=== PATIENT | male | born 1945 | race Caucasian/White ===

== ENCOUNTER 2021-02-10 10:34 | Emergency (ER) | payer OTHER, SELFPAY ==
[2021-02-10 10:42] VITALS: BP 122/74; PULSE 87; RESP 18; TEMP 37; O2SAT 96; BMI 23.7
--- NOTE | 2021-02-10 10:59 | ED_ITS ---
HPI - General Adult General Chief complaint: General Medical <Pina Lyles NP - Last Filed: 02/10/21 12:31> Stated complaint: covid symptoms <Pina Lyles NP - Last Filed: 02/10/21 12:31> Time Seen by Provider: 02/10/21 10:59 <Pina Lyles NP - Last Filed: 02/10/21 12:31> Source: patient <Pina Lyles NP - Last Filed: 02/10/21 12:31> Mode of arrival: ambulatory <EMELIA Deleon Last Filed: 02/10/21 12:31> Limitations: no limitations <EMELIA Deleon Last Filed: 02/10/21 12:31> History of Present Illness HPI narrative: 75 yo male here with chills, malaise and body aches x 2 days. Covid exposure at work last week ?Wednesday. Tested negative last wednesday. Symptoms began Wednesday. Here for re-test. <Pina Lyles NP - Last Filed: 02/10/21 12:31> Related Data Allergies/adverse reactions: Allergies Allergy/AdvReac Type Severity Reaction Status Date / Time No Known Allergies Allergy Mild NOT Verified 02/10/21 10:47 APPLICABLE <Pina Lyles NP - Last Filed: 02/10/21 12:31> Review of Systems Review of Systems: Yes all other systems are reviewed and are negative <EMELIA Deleon Last Filed: 02/10/21 12:31> Constitutional: Constitutional: Reports no additional constitutional complaints, Reports body ache(s), Reports chills, Denies fever(s), Denies headache(s), Reports malaise and Denies weakness <EMELIA Deleon Last Filed: 02/10/21 12:31> Eyes: Eyes: Reports no additional eye complaints and Denies change in vision <EMELIA Deleon Last Filed: 02/10/21 12:31> ENT: Reports system reviewed and no additional complaints, except as documented, Denies dizziness, Denies headache(s), Denies nasal congestion, Denies nasal discharge and Denies neck pain <Pina Lyles NP - Last Filed: 02/10/21 12:31> Cardiovascular: Cardiovascular: Reports no additional cardiovascular complaints, Denies chest pain, Denies leg edema and Denies dyspnea <Pina Lyles NP - Last Filed: 02/10/21 12:31> Respiratory: Respiratory: Reports no additional respiratory complaints, Denies cough and Denies dyspnea <Pina Lyles NP - Last Filed: 02/10/21 12:31> Gastrointestinal: Gastrointestinal: Reports no additional gastrointestinal complaints, Denies abdominal pain, Denies diarrhea, Denies nausea and Denies vomiting <Pina Lyles NP - Last Filed: 02/10/21 12:31> Genitourinary: Genitourinary: Denies urinary incontinence <Pina Lyles NP - Last Filed: 02/10/21 12:31> Musculoskeletal: Musculoskeletal: Reports no additional musculoskeletal complaints, Denies back pain, Denies arthralgias, Denies joint swelling, Denies neck pain, Denies numbness and Denies tingling <Pina Lyles NP - Last Filed: 02/10/21 12:31> Integumentary/Breasts: Skin/Breast: Reports system reviewed and no additional complaints, except as docu and Denies rash <Pina Lyles NP - Last Filed: 02/10/21 12:31> Neurologic: Reports system reviewed and no additional complaints, except as documented, Denies Abnormal speech present, Denies dizziness, Denies headache(s), Denies numbness, Denies tingling and Denies weakness <Pina Lyles NP - Last Filed: 02/10/21 12:31> PMF Past Medical History Attestation statement: The following information was validated with the patient. <Pina Lyles NP - Last Filed: 02/10/21 12:31> Source: old records reviewed and nursing notes reviewed <Pina Lyles NP - Last Filed: 02/10/21 12:31> Social History Social History: Social History Advance Directives: No Advance Directives Information Provided: No <Pina Lyles NP - Last Filed: 02/10/21 12:31> Physical Exam Vital Signs: Vital Signs: Last Vital Signs Temp 98.6 F 02/10/21 10:42 Pulse 87 02/10/21 10:42 Resp 18 02/10/21 10:42 BP 122/74 02/10/21 10:42 Pulse Ox 96 02/10/21 10:42 Body Mass Index 23.7 <Pina Lyles NP - Last Filed: 02/10/21 12:31> Vital Signs: Last Vital Signs Temp 98.6 F 02/10/21 10:42 Pulse 87 02/10/21 10:42 Resp 18 02/10/21 10:42 BP 122/74 02/10/21 10:42 Pulse Ox 96 02/10/21 10:42 Body Mass Index 23.7 <Ashish Bryant MD - Last Filed: 02/24/21 14:33> Const: General: cooperative, healthy appearing, comfortable and no acute distress <Pina Lyles NP - Last Filed: 02/10/21 12:31> Orientation/consciousness: patient oriented x3 <Pina Lyles NP - Last Filed: 02/10/21 12:31> Limitations: no limitations <Pina Lyles NP - Last Filed: 02/10/21 12:31> HENMT: Head: Yes normal to inspection <Pina Lyles NP - Last Filed: 02/10/21 12:31> Ears: hearing grossly normal bilaterally <Pina Lyles NP - Last Filed: 02/10/21 12:31> Eyes: General: appearance normal, both eyes and all related structures <Pina Lyles NP - Last Filed: 02/10/21 12:31> Neck: Neck: Yes normal visual inspection <Pina Lyles NP - Last Filed: 02/10/21 12:31> Chest: Chest palpation & inspection: normal inspection of the chest <Pina Lyles NP - Last Filed: 02/10/21 12:31> Resp: Effort & Inspection: normal respiratory effort <Pina Lyles NP - Last Filed: 02/10/21 12:31> Auscultation: clear to auscultation bilaterally <Pina Lyles NP - Last Filed: 02/10/21 12:31> Cardio: Rate: regular rate <EMELIA Deleon Last Filed: 02/10/21 12:31> Rhythm: regular rhythm <Pina Lyles NP - Last Filed: 02/10/21 12:31> Peripheral pulses: Peripheral pulses 2+ throughout <Pina Lyles NP - Last Filed: 02/10/21 12:31> Skin: General skin exam: no rashes or lesions noted <Pina Lyles NP - Last Filed: 02/10/21 12:31> Neuro: General: patient oriented x3 and moves all extremities <Pina Lyles NP - Last Filed: 02/10/21 12:31> Cognition (Neuro): normal cognition <Pina Lyles NP - Last Filed: 02/10/21 12:31> Speech: No Abnormal speech present <Pina Lyles NP - Last Filed: 02/10/21 12:31> Gait exam (Neuro): Normal gait present <Pina Lyles NP - Last Filed: 02/10/21 12:31> Extrem: General: Yes normal to inspection <EMELIA Deleon Last Filed: 02/10/21 12:31> Course Course Course Narrative: 75 yo male previously healthy here with complaints of subjective fevers, chills, body aches times 48 hours with COVID exposure last week at work. Well-appearing, speaking full sentences in no apparent distress. Hemodynam ically stable. Plan for COVID test here. 1205-COVID screen positive. Patient well-appearing. Clear lung sounds with stable saturations. Reviewed worrisome signs and symptoms such as shortness of breath, chest pain, fever which does not respond to home antipyretic and when to return to the emergency department. Comfortable discharge home. <Pina Lyles NP - Last Filed: 02/10/21 12:31> I have reviewed the chart <Ashish Bryant MD - Last Filed: 02/24/21 14:33> Medical Decision Making Medical Records Medical records reviewed: Yes I reviewed the patient's medical records. <Pina Lyles NP - Last Filed: 02/10/21 12:31> Lab Data Lab results reviewed: Yes I reviewed the patient's lab results. <Pina Lyles NP - Last Filed: 02/10/21 12:31> Labs: Lab Results 02/10/21 Range/Units 11:13 COVID-19 ([facility]) Positive A (Negative) COVID-19 Clin Com See Note <Pina Lyles NP - Last Filed: 02/10/21 12:31> Lab Results 02/10/21 Range/Units 11:13 COVID-19 ([facility]) Positive A (Negative) COVID-19 Clin Com See Note <Ashish Bryant MD - Last Filed: 02/24/21 14:33> Discharge Plan Discharge Clinical Impression: COVID-19 <Pina Lyles NP - Last Filed: 02/10/21 12:31> Patient Disposition: Home, Self-Care <Pina Lyles NP - Last Filed: 02/10/21 12:31> Instructions: COVID-19 (Coronavirus Disease 2019) (ED) <Pina Lyles NP - Last Filed: 02/10/21 12:31> Additional Instructions: Per the CDC you must quarantine for 10 days from when your symptoms 1st began Take Motrin or Tylenol as needed for pain or fever if able Increase fluids, rest Return for shortness of breath, chest pain, fever which does not respond to Motrin or Tylenol <Pina Lyles NP - Last Filed: 02/10/21 12:31> Referrals: Trino Glover MD [Primary Care Provider] - 2 days <Pina Lyles NP - Last Filed: 02/10/21 12:31> Interventions: ED Discharge Assessment Last Done: 02/10/21 12:25 <Pina Lyles NP - Last Filed: 02/10/21 12:31> Discharge Date/Time: 02/10/21 12:10 <Pina Lyles [employer] - Last Filed: 02/10/21 12:31>
[2021-02-10 11:28] LABS: COVID-19 Test Positive (Negative); IDNOW Serial# 9DD0AD1C
== END 2021-02-10 12:10 | disposition home or self-care (01) ==
PROVIDERS: Nurse Practitioner Family; Emergency Provider Emergency Medicine; PCP Internal Medicine
DX: U07.1 COVID-19 (principal); M79.10 Myalgia, unspecified site
CPT/HCPCS: 36415; 87635; 99283

== ENCOUNTER 2023-06-16 08:41 | Outpatient (REF) | payer OTHER, SELFPAY ==
[2023-06-16 09:02] LABS: MANUAL DIFF FLAG NO
[2023-06-16 10:52] LABS: Alanine Aminotransferase 21 U/L (0-40); Albumin Level 4.4 g/dL (3.5-5.0); Alkaline Phosphatase 75 U/L (39-117); Anion Gap 14 (12-20); Aspartate Amino Transferase 23 U/L (5-37); Blood Urea Nitrogen 11 mg/dL (9-16); Calcium 10.1 mg/dL (8.4-10.2); Carbon Dioxide 26 mmol/L (22-29); Chloride 106 mmol/L (96-108); Cholesterol 195 mg/dL; Estimated Glomerular Filt Rate > 60; Glucose Fasting 92 mg/dL (60-99); HDL Cholesterol 34 mg/dL; LDL Cholesterol Calculated 128 mg/dl; Potassium 4.4 mmol/L (3.3-5.1); Sodium 142 mmol/L (135-145); Total Protein 7.6 g/dL (6.5-8.0); Triglycerides 165 mg/dL
[2023-06-16 10:55] LABS: Basophils Percent Auto 0.6 % (0-2); Eosinophils Absolute Auto 0.1 X10*3/uL (0.0-0.4); Eosinophils Percent Auto 1.1 % (0-4); Hematocrit 49.5 % (42.0-52.0); Hemoglobin 17.1 g/dl (14.0-18.0); Imm Gran Abs Auto 0.01 X10*3/uL (0.00-0.03); Imm Gran Pct Auto 0.1 % (0.0-0.4); Lymphocytes Absolute Auto 1.7 X10*3/uL (1.2-4.9); Lymphocytes Percent Auto 23.9 % (20-40); Mean Corpuscular HGB Conc 34.5 g/dl (31.0-36.0); Mean Corpuscular Hemoglobin 32.6 pg (27.0-33.0); Mean Corpuscular Volume 94.3 fL (80.0-98.0); Mean Platelet Volume 10.7 fL (9.4-12.4); Monocytes Absolute Auto 0.6 X10*3/uL (0.1-1.2); Monocytes Percent Auto 8.9 % (2-11); Neutrophils Absolute Auto 4.6 x10*3/uL (2.0-8.3); Neutrophils Percent Auto 65.4 % (45-73); Platelet Count 244 X10*3/uL (160-400); Red Blood Count 5.25 X10*6/uL (4.60-5.80); Red Cell Distribution Width 12.8 % (11.0-16.0)
[2023-06-16 10:59] LABS: Prostate Specific Antigen 1.57 ng/mL (<0.05-4.0)
[2023-06-16 11:12] LABS: Vitamin D 25-OH Total 42.2 ng/mL (>30)
== END 2023-06-16 08:42 | disposition home or self-care (01) ==
LOC: HO.LAB 08:41
PROVIDERS: PCP Internal Medicine Medical Oncology; Visit Provider Internal Medicine Medical Oncology
DX: Z12.5 Encounter for screening for malignant neoplasm of prostate (principal); N40.0 Benign prostatic hyperplasia without lower urinary tract symptoms; J44.9 Chronic obstructive pulmonary disease, unspecified; M85.80 Other specified disorders of bone density and structure, unspecified site; E78.2 Mixed hyperlipidemia; E03.9 Hypothyroidism, unspecified
CPT/HCPCS: 36415; 80053; 80061; 82306; 84153; 84443; 85025

== ENCOUNTER 2023-08-27 11:01 | Outpatient (AMB) | payer OTHER, SELFPAY ==
--- NOTE | 2023-08-27 07:24 | A.OFFVIS_ITS ---
Intake Intake Visit Reasons: LDCT SD Allergies No Known Allergies Allergy (Mild, Verified 02/10/21 10:47) NOT APPLICABLE HPI LDCT SD HPI Details Initial telehealth phone visit for this 78yo smoker with a 60PYH. Patient has been smoking since age 14 for 64 years at 1ppd. . Denies marijuana use. Denies second hand smoke exposure. Denies exposure to chemicals or substances like asbestos. . Denies known family history of lung cancer. Reports personal history of skin cancer - basal cell excised below right eye. . Denies chest CT in last year. Per PCP notes he has history of pleural plaques but no history of asbestos exposure. History of right pneumothorax at age 16. . Denies recent travel outside the [place]. Denies recent respiratory illness or recent hospitalization for respiratory issues. Reports testing positive for COVID in 2020 and 2021. Denies receiving COVID Vaccine. . Denies fever, chills, new/worsening cough, hemoptysis, hoarseness or dysphagia. Denies significant chest pain, significant dyspnea or unintentional weight loss. Patient Lung Cancer Screening Questionnaire reviewed with patient by provider. . Shared Decision Making Completed. Patient meets criteria. Discussed in detail with patient, the risk vs benefit of LDCT screening. Patient consents to proceed with scan. Discussed smoking cessation. 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 History of COVID-19 Nicotine dependence, cigarettes, uncomplicated Pleural plaque History of pneumothorax History of periodontal disease BPH (benign prostatic hyperplasia) Surgical History (Updated 08/27/23 @ 10:17 by Radha Dos Santos PA-C) History of basal cell carcinoma excision History of amputation of finger History of colonoscopy History of hemorrhoidectomy History of tooth extraction Family History (Updated 08/05/23 @ 10:33 by Radha Dos Santos PA-C) Father CHF (congestive heart failure) Mother Dementia Stroke Assessment & Plan Assessment & Plan (1) Nicotine dependence, cigarettes, uncomplicated: Comment: (current smoker, onset 14yo, 1ppd x 64yrs, 60pyh) Code(s): F17.210 - Nicotine dependence, cigarettes, uncomplicated Plan: - Telehealth SDM visit completed today in office. - Patient meets criteria for LDCT for lung cancer screening purposes and is asymptomatic. - Smoking cessation counseling offered. Patients can always call [phone]. - Will arrange for a LDCT scan of the chest for screening purposes at [facility]. - Risks, benefits, and alternatives were discussed in detail and the patient agrees to proceed. - Risks discussed include but are not limited to: radiation exposure, anxiety during testing and while awaiting results, false negatives, false positives and possibility of additional intervention such as further imaging or surgical procedures for benign disease. - Benefits are obviously detection of lung cancer at an early stage which can lead to improved outcomes. - Discussed the importance of screening program compliance with adherence to yearly LDCT scan as scheduled - or sooner interval scans for personalized screening regimen. - Discussed follow up plan. Our office will send a letter discussing results and if needed set up phone call and office visit based on CT findings. - Patient educated on results categorization and the management decisions for suspicious findings potentially found on the screening LDCT scan. Any patient with a Lung RADS score of 3 or 4 will be reviewed by a multidisciplinary team at [facility] to form a plan of action in regards to scan findings. - If further work up is warranted for a suspicious lung finding this will be followed by the Lung Cancer Screening program in conjunction with the Thoracic Surgery Department at [facility]. - A copy of the office note and LDCT will be sent to the patient's PCP - as well as documentation on any associated further plans of care. - Incidental findings on LDCT are the PCP's responsibility. These findings are indicated with an S finding on the LDCT Assessment. A note discussing the findings will be sent to the PCP who is then responsible for further management. - All questions answered.? Telehealth Telehealth Location of provider rendering services: practice address Location of patient: address on file Patient Identification confirmed using: Name, : Yes Telehealth method: voice only Patient verbally consented to treatment: Yes Patient verbally consented to billing insurance company: Yes Patient informed of any privacy concerns related to visit: Yes Minutes spent on Phone/Video with Pt.: 15 Coding Level of Care Code Lung Cancer Screening G0296 Diagnoses Nicotine dependence, cigarettes, uncomplicated F17.210
== END 2023-08-27 11:03 | disposition home or self-care (01) ==
LOC: HO.HMS 11:01
PROVIDERS: PCP Internal Medicine Medical Oncology; Visit Provider Physician Assistant Medical
DX: F17.210 Nicotine dependence, cigarettes, uncomplicated (principal)
CPT/HCPCS: G0296

== ENCOUNTER 2023-08-27 12:45 | Outpatient (REF) | payer OTHER, SELFPAY ==
--- NOTE | ~2023-08-27 | CT_ITS ---
EXAMINATION: CT CHEST LOW-DOSE SCREENING WITHOUT CONTRAST HISTORY: Asymptomatic patient meeting criteria for lung screening. PATIENT PACK-YEAR HISTORY: 65 Current Smoker: Yes If former smoker, years since quitting: COMPARISON: 03/28/2009 TECHNIQUE: Multidetector volumetric non-contrast CT imaging of the chest was performed using low dose screening CT technique. Axial thin section 0.625 mm reformations in soft tissue and lung windows were obtained. Sagittal and coronal reformations were obtained. Axial MIP images were also created and reviewed. RECONSTRUCTED WIDTH: 1.25 mm x 1.25 mm TOTAL EXAM DLP: 62 mGy-cm CTDIvol: 1.30 L mGy FINDINGS: LUNGS: Mild centrilobular emphysema. No suspicious pulmonary nodule. No focal consolidation. Central airways are patent. PLEURA: No pleural effusion. LYMPH NODES: Calcified left hilar lymph node measures 1.4 x 2.1 cm. MEDIASTINUM: Ascending thoracic aorta measures 4.2 x 4.3 cm. Heart size is normal. No pericardial effusion. CORONARY ARTERY CALCIFICATIONS: Moderate. CHEST WALL/BREASTS: No acute abnormality. UPPER ABDOMEN: This study was performed without contrast and with lower than standard dose, reducing the sensitivity for detection of small lesions in the upper abdomen. Chronic granulomatous disease of the spleen. OSSEOUS STRUCTURES: No destructive bone lesions. CT/CT lung screening IMPRESSION: No suspicious pulmonary nodule. LUNG-RADS CATEGORY ASSESSMENT: 1. Negative. No nodules or definitely benign nodules. Continue annual screening with low-dose CT in 12 months. Probability of malignancy less than 1%. INCIDENTAL FINDINGS (S CATEGORY): Finding: Thoracic aortic aneurysm. Significance category: Clinically significant. RECOMMENDATION: Low dose lung CT. overall in 1 year. Visual estimate of coronary calcified plaque burden: Moderate. However, this exam cannot replace a dedicated cardiac CT calcium score for accurate assessment. LUNG-RADS CATEGORY: 1 -- NEGATIVE
== END 2023-08-27 12:46 | disposition home or self-care (01) ==
LOC: HO.CT 12:45
PROVIDERS: PCP Internal Medicine Medical Oncology; Visit Provider Physician Assistant Medical
DX: Z12.2 Encounter for screening for malignant neoplasm of respiratory organs (principal); F17.210 Nicotine dependence, cigarettes, uncomplicated
CPT/HCPCS: 71271; G0296

== ENCOUNTER 2023-09-03 15:46 | Outpatient (REF) | payer OTHER, SELFPAY ==
--- NOTE | ~2023-09-03 | XR_ITS ---
EXAM: XR LUMBAR SPINE XR SACROILIAC JOINTS CLINICAL HISTORY: Lumbar radiculopathy. COMPARISON: None available. TECHNIQUE: Views of the lumbar spine. 3 views of the bilateral sacroiliac joints. FINDINGS: SACROILIAC JOINTS: The bones are diffusely demineralized. Moderate degenerative changes in the bilateral sacroiliac joints with hypertrophic change right greater than left. Tubular/linear density projecting along the posterior/inferior portion of the sacrum/coccyx on the lateral view may be related to structures possibly external to the patient. Correlation with exam recommended. LUMBAR SPINE: Degenerative changes in the imaged lower thoracic spine. Facet arthritis in the lower lumbar spine. Multilevel degenerative changes in the lumbar spine with concavities at L1 with associated hypertrophic change at L1-L2. XR/XR sacrum coccyx min 2V IMPRESSION: 1. Moderate degenerative changes in the bilateral sacroiliac joints, right greater than left. 2. Multilevel degenerative changes in the lumbar spine. 3. Superior and inferior endplate concavities at L1 with increased hypertrophic change at L1-L2.
--- NOTE | ~2023-09-03 | XR_ITS ---
EXAM: XR LUMBAR SPINE XR SACROILIAC JOINTS CLINICAL HISTORY: Lumbar radiculopathy. COMPARISON: None available. TECHNIQUE: Views of the lumbar spine. 3 views of the bilateral sacroiliac joints. FINDINGS: SACROILIAC JOINTS: The bones are diffusely demineralized. Moderate degenerative changes in the bilateral sacroiliac joints with hypertrophic change right greater than left. Tubular/linear density projecting along the posterior/inferior portion of the sacrum/coccyx on the lateral view may be related to structures possibly external to the patient. Correlation with exam recommended. LUMBAR SPINE: Degenerative changes in the imaged lower thoracic spine. Facet arthritis in the lower lumbar spine. Multilevel degenerative changes in the lumbar spine with concavities at L1 with associated hypertrophic change at L1-L2. XR/XR lumbar spine 2-3V IMPRESSION: 1. Moderate degenerative changes in the bilateral sacroiliac joints, right greater than left. 2. Multilevel degenerative changes in the lumbar spine. 3. Superior and inferior endplate concavities at L1 with increased hypertrophic change at L1-L2.
== END 2023-09-03 15:47 | disposition home or self-care (01) ==
LOC: HO.XRAY 15:46
PROVIDERS: PCP Internal Medicine Medical Oncology; Visit Provider Internal Medicine Medical Oncology
DX: M54.16 Radiculopathy, lumbar region (principal); M53.3 Sacrococcygeal disorders, not elsewhere classified
CPT/HCPCS: 72100; 72220

== ENCOUNTER 2023-12-21 08:55 | Outpatient (REF) | payer OTHER, SELFPAY ==
[2023-12-21 09:08] LABS: MANUAL DIFF FLAG NO
[2023-12-21 09:34] LABS: Basophils Percent Auto 0.4 % (0-2); Eosinophils Absolute Auto 0.1 X10*3/uL (0.0-0.4); Eosinophils Percent Auto 1.2 % (0-4); Hemoglobin 16.6 g/dl (14.0-18.0); Imm Gran Abs Auto 0.02 X10*3/uL (0.00-0.03); Imm Gran Pct Auto 0.3 % (0.0-0.4); Lymphocytes Absolute Auto 1.6 X10*3/uL (1.2-4.9); Lymphocytes Percent Auto 23.7 % (20-40); Mean Corpuscular HGB Conc 34.6 g/dl (31.0-36.0); Mean Corpuscular Volume 92.5 fL (80.0-98.0); Mean Platelet Volume 9.6 fL (9.4-12.4); Monocytes Absolute Auto 0.7 X10*3/uL (0.1-1.2); Monocytes Percent Auto 9.6 % (2-11); Neutrophils Absolute Auto 4.4 x10*3/uL (2.0-8.3); Neutrophils Percent Auto 64.8 % (45-73); Platelet Count 235 X10*3/uL (160-400); Red Blood Count 5.19 X10*6/uL (4.60-5.80); Red Cell Distribution Width 12.4 % (11.0-16.0); White Blood Count 6.8 X10*3/uL (4.8-10.8)
[2023-12-21 10:12] LABS: Alanine Aminotransferase 19 U/L (0-40); Albumin Level 4.3 g/dL (3.5-5.0); Alkaline Phosphatase 85 U/L (39-117); Anion Gap 12 (12-20); Aspartate Amino Transferase 18 U/L (5-37); Blood Urea Nitrogen 12 mg/dL (9-16); Calcium 9.6 mg/dL (8.4-10.2); Carbon Dioxide 25 mmol/L (22-29); Chloride 109 mmol/L (96-108); Cholesterol 208 mg/dL (<200); Estimated Glomerular Filt Rate > 60; Glucose Fasting 89 mg/dL (60-99); HDL Cholesterol 34 mg/dL (>40); LDL Cholesterol Calculated 146 mg/dL (<100); Sodium 142 mmol/L (135-145); Total Protein 7.2 g/dL (6.5-8.0); Triglycerides 141 mg/dL (<150)
== END 2023-12-21 08:56 | disposition home or self-care (01) ==
LOC: HO.LAB 08:55
PROVIDERS: PCP Internal Medicine Medical Oncology; Visit Provider Internal Medicine Medical Oncology
DX: E78.2 Mixed hyperlipidemia (principal)
CPT/HCPCS: 36415; 80053; 80061; 85025

== ENCOUNTER 2024-06-09 09:24 | Outpatient (REF) | payer OTHER, SELFPAY ==
[2024-06-09 09:48] LABS: MANUAL DIFF FLAG NO
[2024-06-09 10:01] LABS: Basophils Percent Auto 0.4 % (0-2); Eosinophils Absolute Auto 0.1 X10*3/uL (0.0-0.4); Eosinophils Percent Auto 1.8 % (0-4); Hemoglobin 17.2 g/dl (14.0-18.0); Imm Gran Abs Auto 0.02 X10*3/uL (0.00-0.03); Imm Gran Pct Auto 0.3 % (0.0-0.4); Lymphocytes Absolute Auto 1.8 X10*3/uL (1.2-4.9); Lymphocytes Percent Auto 23.4 % (20-40); Mean Corpuscular HGB Conc 34.4 g/dl (31.0-36.0); Mean Corpuscular Volume 93.1 fL (80.0-98.0); Mean Platelet Volume 9.8 fL (9.4-12.4); Monocytes Absolute Auto 0.7 X10*3/uL (0.1-1.2); Monocytes Percent Auto 9.2 % (2-11); Neutrophils Absolute Auto 5.1 x10*3/uL (2.0-8.3); Neutrophils Percent Auto 64.9 % (45-73); Platelet Count 229 X10*3/uL (160-400); Red Blood Count 5.37 X10*6/uL (4.60-5.80); Red Cell Distribution Width 13.1 % (11.0-16.0); White Blood Count 7.9 X10*3/uL (4.8-10.8)
[2024-06-09 10:45] LABS: Alanine Aminotransferase 18 U/L (0-40); Albumin Level 4.5 g/dL (3.5-5.0); Alkaline Phosphatase 87 U/L (39-117); Anion Gap 11 (12-20); Aspartate Amino Transferase 18 U/L (5-37); Blood Urea Nitrogen 14 mg/dL (9-16); Calcium 10.3 mg/dL (8.4-10.2); Carbon Dioxide 25 mmol/L (22-29); Chloride 110 mmol/L (96-108); Cholesterol 188 mg/dL (<200); Estimated Glomerular Filt Rate > 60; Glucose Fasting 104 mg/dL (60-99); HDL Cholesterol 35 mg/dL (>40); LDL Cholesterol Calculated 131 mg/dL (<100); Sodium 142 mmol/L (135-145); Total Protein 7.3 g/dL (6.5-8.0); Triglycerides 111 mg/dL (<150)
[2024-06-09 10:59] LABS: Prostate Specific Antigen 0.86 ng/mL (<0.05-4.0)
== END 2024-06-09 09:25 | disposition home or self-care (01) ==
LOC: HO.LAB 09:24
PROVIDERS: PCP Internal Medicine Medical Oncology; Visit Provider Internal Medicine Medical Oncology
DX: N40.0 Benign prostatic hyperplasia without lower urinary tract symptoms (principal); E78.2 Mixed hyperlipidemia; Z12.5 Encounter for screening for malignant neoplasm of prostate
CPT/HCPCS: 36415; 80053; 80061; 84153; 85025

== ENCOUNTER 2024-07-19 15:01 | Outpatient (REF) | payer OTHER, SELFPAY ==
--- NOTE | ~2024-07-19 | XR_ITS ---
EXAMINATION: XR FINGER, LEFT CLINICAL INFORMATION: smashed his finger in a machine on 07/17/24. Index finger fracture. COMPARISON: None available. TECHNIQUE: PA, lateral, and oblique views of the left index finger. FINDINGS: There is a subtle chip fracture at the tuft of the index finger. This is relatively small and may be acute. No additional fractures are identified. Mild osteoarthritis is present in the DIP joint of the index finger. No mild multifocal osteoarthritis partially imaged and the other interphalangeal joints and the first CMC and STT joints. No erosions. 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 XR/XR finger LT min 2V IMPRESSION: 1. Subtle chip fracture at the tuft of the index finger, age indeterminate. 2. Mild multifocal osteoarthritis. Electronically signed by: Clint Rashid MD 07/19/2024 04:47 PM EDT RP
== END 2024-07-19 15:02 | disposition home or self-care (01) ==
LOC: HO.XRAY 15:01
PROVIDERS: PCP Internal Medicine Medical Oncology; Visit Provider Internal Medicine Medical Oncology
DX: S62.601A Fracture of unspecified phalanx of left index finger, initial encounter for closed fracture (principal)
CPT/HCPCS: 73140

== ENCOUNTER 2024-07-27 13:20 | Outpatient (REF) | payer OTHER, SELFPAY ==
--- NOTE | ~2024-07-27 | XR_ITS ---
EXAMINATION: XR HAND, LEFT CLINICAL INFORMATION: M79.642 - Pain in left hand COMPARISON: None available. TECHNIQUE: PA, lateral, and oblique views of the left hand. FINDINGS: Normal bone mineralization. No suspicious bone lesion. Previously seen small chip fracture of the distal tuft, distal phalanx, second digit again noted, without definite change in appearance. No additional fractures or dislocations. There has been prior amputation of the third digit at the distal one third of the middle phalanx. There is normal bony cortication at the distal tip. No significant regions of arthropathy. Carpus intact and normally aligned. No discrete soft tissue abnormalities. No radiopaque foreign body. XR/XR hand LT min 3V IMPRESSION: 1. Redemonstration of small chip fracture arising from the distal tuft of the first digit distal phalanx. No change in the overall appearance. 2. Otherwise, no acute findings of the left hand Electronically signed by: Clint Elder MD 10/07/2024 08:54 PM TOÑITO
== END 2024-07-27 13:21 | disposition home or self-care (01) ==
LOC: HO.HOSX 13:20
PROVIDERS: PCP Internal Medicine Medical Oncology
DX: S62.631A Displaced fracture of distal phalanx of left index finger, initial encounter for closed fracture (principal); M79.642 Pain in left hand; X58.XXXA Exposure to other specified factors, initial encounter; Y93.9 Activity, unspecified; Y92.9 Unspecified place or not applicable; Y99.9 Unspecified external cause status
CPT/HCPCS: 73130

== ENCOUNTER → 2024-07-27 13:27 | Outpatient (BNV) | payer OTHER, SELFPAY | PROVIDERS: PCP Internal Medicine Medical Oncology; Visit Provider Radiology Diagnostic Radiology | DX: S62.631A Displaced fracture of distal phalanx of left index finger, initial encounter for closed fracture (principal) | CPT/HCPCS: 73130 ==

== ENCOUNTER 2024-07-27 14:15 | Outpatient (AMB) | payer OTHER, SELFPAY ==
--- NOTE | 2024-07-27 14:18 | A.OFFVIS_ITS ---
Intake Visit Reasons: FC-Fx of Left index finger DOI 07/16/24 Intake Note: Donald is a 79 year old right hand dominant male who presents to the office today for a fx of left index finger. Pt states his DOI was 07/16/24 when he was working and his finger got stuck in a machine at work. Pt states he doesn't have any pain now but states he still has some swelling. Pt denies any numbness or tingling. Allergies No Known Allergies Allergy (Mild, Verified 07/27/24 14:18) NOT APPLICABLE HPI HPI FC-Fx of Left index finger DOI 07/16/24: Details: Patient is a 71-year-old male who presents for evaluation of fracture of the distal phalanx of the left index finger, date of injury 07/16/2024. The patient reports that he was at work, when his finger got caught between 2 motions, and was crushed between these 2 machines. The patient reports that there was no active bleeding from the injury site, but states that he did develop a significant hematoma under the fingernail of the left index finger. The patient reports that his pain in the left index finger has completely resolved, and then he is not experiencing any swelling or redness in the area. Patient has been wearing a splint since date of evaluation on 07/20/2024. Denies any numbness or tingling in the left upper extremity. No other acute complaints or concerns at this time. [facility] Medical History (Updated 07/28/24 @ 09:03 by AMELIA Choudhary) History of basal cell carcinoma (BCC) of skin Dilation of thoracic aorta History of COVID-19 Nicotine dependence, cigarettes, uncomplicated Pleural plaque History of pneumothorax History of periodontal disease BPH (benign prostatic hyperplasia) Surgical History (Updated 08/27/23 @ 10:17 by Radha Dos Santos PA-C) History of basal cell carcinoma excision History of amputation of finger History of colonoscopy History of hemorrhoidectomy History of tooth extraction Family History (Updated 08/05/23 @ 10:33 by Radha Dos Santos PA-C) Father CHF (congestive heart failure) Mother Dementia Stroke Social History (Updated 08/27/23 @ 10:19 by Radha Dos Santos PA-C) Patient Tobacco Use Status: Current everyday Tobacco user Tobacco use type: Cigarette Cigarette Packs Per Day: 1 Years Smoked: (onset 14yo, 1ppd x 65yrs, 60pyh) Review of Systems Const All systems reviewed & are unremarkable except as noted in HPI and below Physical Exam Extrem Other: Patient is alert, oriented, and in no acute distress. Neuro: Normal sensation of the tips of all digits of the left hand at this time Vascular: Cap refill brisk Pain: Patient reports no tenderness to palpation about the distal portion of the left index finger ROM: Patient is able to make a closed fist and extend all digits of the left hand fully without difficulty Skin: No lacerations or abrasions. There is noted to be a significant subungual hematoma of the left index finger, with no evidence of active bleeding General: No erythema, or evidence of infection. Psych: Appears grossly normal Affect normal Attitude cooperative Office Procedures Fracture Care Details: Fracture of distal phalanx of the left index finger Fracture Billing Code: Fracture Billing Code Results Reviewed Results Reviewed: X-rays obtained in the office today and independently reviewed by me, Suhail Baca PA-C, demonstrate small avulsion fracture of the tip of the distal phalanx of the left index finger, of unknown age. No other fracture or acute bony abnormality noted. Assessment & Plan Assessment & Plan (1) Fracture of distal phalanx of left index finger: Code(s): S62.631A - Displaced fracture of distal phalanx of left index finger, initial encounter for closed fracture Category: Medical Plan 1. Avulsion fracture of distal phalanx of left index finger with subungual hematoma Date of injury 07/16/2024 Patient is educated about this injury Patient is educated about the typical recovery course At this time, the patient is educated that he will not require any antibiotics, as there is no evidence of bleeding outside of under the fingernail of the left index finger, therefore this does not need to be considered an open fracture Patient is also advised that he does not require the use of a splint at this time, and then he only needs to wear it for comfort Patient is also advised that his fingernail will likely come off at some point in the coming weeks, and if that occurs he should keep the area clean, dry, intact under a dressing Patient is also educated on the signs and symptoms of infection, and to call our office for another appointment if he experiences any of the symptoms Patient is amenable to this plan Patient will follow-up as needed with any acute concerns Orders: Orders XR hand LT min 3V 07/27/24 M79.642 - Pain in left hand Coding Level of Care Code New Pt Level 3 (35455) Diagnoses Fracture of distal phalanx of left index finger S62.631A CPT Codes Fracture Care - Fracture Billing Code: Fracture Billing Code ([id number])
== END 2024-07-27 14:53 | disposition home or self-care (01) ==
PROVIDERS: PCP Internal Medicine Medical Oncology
DX: S62.631A Displaced fracture of distal phalanx of left index finger, initial encounter for closed fracture (principal)
CPT/HCPCS: 99203

== ENCOUNTER 2025-06-18 07:21 | Outpatient (REF) | payer OTHER, SELFPAY ==
--- OUTSIDE RECORDS SUMMARY | 2025-06-18 07:24 | XMS_ITS ---
Author Name [facility] Organization Unknown Care Team Organization Name Specialty Phone Email Start Date End Da te [facility] Radha Layton Primary [facility] 05/13/20232023
--- OUTSIDE RECORDS SUMMARY | 2025-06-18 07:24 | XMS_ITS | Patient Health Record ---
Author Organization [facility] Address [address] [facility] [place] [address] Care Team Providers Care Internet Project Manager Name Role Phone Adalberto MACIEL, Trino Primary Care Provider Holly Yvan Carter Unavailable [phone] Reason For Referral No Information Medications Medication SIG (Take, Route, Frequency, Duration) Notes Start Date End Date Status Doxycycline Hyclate 20 MG 1 tablet Orall y Twice a day Active Problems Problem Type SNOMED Code ICD Code Onset Dates Problem Status W/U Status Risk Notes Problem Bursitis (76675227) Bursitis (727.3) Active confirmed Problem Myositis (26696905) Myositis (729.1) Active confirmed Problem Pain in limb (18205890) Pain in Limb (729.5) Active confirmed Problem Plantar fasciitis (454251885) Plantar Fasciitis (728.71) Active confirmed Problem Calcaneal spur (86523143) Calcaneal spur (726.73) Active confirmed Plan Of Treatment Pending Test Test Name Order Date X ray : Foot, right 2V 06/20/2015 Insurance Providers Payer Name Payer Address Payer Phone Subscriber Number Group Number Insured Name Patient Relationship to Insured Coverage Start Date Coverage End Date [facility] [address] [facility] [place] [address] [phone] [id number] Donald Venegas Self - patient is the insured Medical (General) History Medical History History ICD Code Measles
--- OUTSIDE RECORDS SUMMARY | 2025-06-18 07:24 | XMS_ITS | Patient Health Record ---
Author Organization Navi Greenberg III, MD Address [address] [place] [address] [place] [address] Care Team Providers Care High Energy Forming Equipment Operator Name Role Phone Navi Greenberg Primary Care Provider [phone] Allergies Allergen (clinical drug ingredient) Drug/Non Drug Allergy documented on EMR Reaction Allergy Type Onset Date Status No Known Drug Allergy Unknown Drug Allergy Active Results Component Value Reference Range Notes XR finger LT min 2V Reviewed date:07/21/2024 08:41:44 PM Interpretation: Performing Lab: Notes/Report: [address] [address] XRay Report Signed Patient: Nyla Venegas MR#: [id number] : 1945 Acct:[id number] Age/Sex: 79 / M ADM Date: 07/19/24 Loc: HO.XRAY Attending Dr: Navi Greenberg MD Ordering Physician: Navi Greenberg MD Date of Service: 07/19/24 Procedure(s): XR finger LT min 2V Accession Number(s): [id number] cc: Navi Greenberg MD EXAMINATION: XR FINGER, LEFT CLINICAL INFORMATION: smashed his finger in a machine on 07/17/24. Index finger fracture. COMPARISON: None available. TECHNIQUE: PA, lateral, and oblique views of the left index finger. FINDINGS: There is a subtle chip fracture at the tuft of the index finger. This is relatively small and may be acute. No additional fractures are identified. Mild osteoarthritis is present in the DIP joint of the index finger. No mild multifocal osteoarthritis partially imaged and the other interphalangeal joints and the first CMC and STT joints. No erosions. 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 XR/XR finger LT min 2V IMPRESSION: 1. Subtle chip fracture at the tuft of the index finger, age indeterminate. 2. Mild multifocal osteoarthritis. Electronically signed by: Clint Rashid MD 07/19/2024 04:47 PM EDT Workstation: [employer] Dictated By: Clint Rashid MD Signed By: <Electronically signed by Clint Rashid MD in OV> 07/19/24 1647 DD/ 1520 TD/TT: 07/19/24 1530 Exercise Equipment Specialist: [place] [id number] XRay Report Signed Patient: Moe Venegas MR#: [id number] : 1945 Acct:[id number] Age/Sex: 79 / M ADM Date: 07/19/24 Loc: HO.ESTHER Attending Dr: Navi Greenberg MD Ordering Physician: Navi Greenberg MD Date of Service: 07/19/24 Procedure(s): XR fin lynn LT min 2V Accession Number(s): [id number] cc: Navi Greenberg MD EXAMINATION: XR FINGER, LEFT CLINICAL INFORMATION: smashed his finger i n a machine on 07/17/24. Index finger fracture. COMPARISON: None available. TECHNIQUE: PA, lateral, and obl ique views of the left index finger. FINDINGS: There is a subtle ch ip fracture at the tuft of the index finger. This is relatively small and may be acute. No additional fractures are identified. Mild ost eoarthritis is present in the DIP joint of the index finger. No mil d multifocal osteoarthritis partially imaged and the other interphala ngeal joints and the first CMC and STT joints. No erosions. Prior ampu tation of the long finger at the level of the middle phalangeal shaft. X R/XR finger LT min 2V IMPRESSION: 1. Subtle chip fract ure at the tuft of the index finger, age indeterminate. 2. Mild multifocal osteoarthritis. Electronically ramiro d by: Clint Rashid MD 07/19/2024 04:47 PM EDT RP Dictated By: Clint Rashid MD Signed By: <Electron ically signed by Clint Rashid MD in OV> 07/19/24 1647 DD/ 1520 TD/TT: 07/19/24 1530 Exercise Equipment Specialist: JUAN XR hand LT min 3V Reviewed date:11/01/2024 08:17:00 AM Interpretation: Performing Lab: Notes/Report: [facility] [address] [place] [address] Drive [address] [place] [address] XRay Report Signed Patient: Nyla Venegas MR#: [id number] : 1945 Acct:[id number] Age/Sex: 79 / M ADM Date: 07/27/24 Loc: HO.HOSX Attending Dr: Suhail CISNEROS Ordering Physician: Suhail Baca Date of Service: 07/27/24 Procedure(s): XR hand LT min 3V Accession Number(s): [id number] cc: Suhail Baca; Navi Greenberg MD EXAMINATION: XR HAND, LEFT CLINICAL INFORMATION: M79.642 - Pain in left hand COMPARISON: None available. TECHNIQUE: PA, lateral, and oblique views of the left hand. FINDINGS: Normal bone mineralization. No suspicious bone lesion. Previously seen small chip fracture of the distal tuft, distal phalanx, second digit again noted, without definite change in appearance. No additional fractures or dislocations. There has been prior amputation of the third digit at the distal one third of the middle phalanx. There is normal bony cortication at the distal tip. No significant regions of arthropathy. Carpus intact and normally aligned. No discrete soft tissue abnormalities. No radiopaque foreign body. XR/XR hand LT min 3V IMPRESSION: 1. Redemonstration of small chip fracture arising from the distal tuft of the first digit distal phalanx. No change in the overall appearance. 2. Otherwise, no acute findings of the left hand Electronically signed by: Clint Elder MD 10/07/2024 08:54 PM EST RP Dictated By: Clint Elder MD Signed By: <Electronically signed by Clint Elder MD in OV> 10/07/242053 DD/ 1327 TD/TT: 07/27/24 1345 Exercise Equipment Specialist: [facility] [address] [place] [address] Drive [address] [place] [address] XRay Report Signed Patient: Moe Venegas MR#: [id number] : 1945 Acct:[id number] Age/Sex: 79 / M ADM Date: 07/27/24 Loc: HO.HOSX Attending Dr: Suhail CISNEROS Ordering Physician: Suhail Baca Date of Service: 07/27/24 Procedure(s): XR hand LT min 3V Accession Number(s): [id number] cc: Suhail Baca ; Navi Greenberg MD EXAMINATION: XR HAND, LEFT CLINICAL INFORMATION: M79.642 - Pain in left hand COMPARISON: None available. TECHNIQUE: PA, lateral, and obl ique views of the left hand. FINDINGS: Normal bone minerali zation. No suspicious bone lesion. Previously seen smal l chip fracture of the distal tuft, distal phalanx, second digit again n oted, without definite change in appearance. No additional fractu res or dislocations. There has been prior amputation of the third digit at the distal one third of the middle phalanx. There is normal bony cortication at the distal tip. No significant regio ns of arthropathy. Carpus intact and no rmally aligned. No discrete soft tis mike abnormalities. No radiopaque foreign body. X R/XR hand LT min 3V IMPRESSION: 1. Redemonstration o f small chip fracture arising from the distal tuft of the first digit d istal phalanx. No change in the overall appearance. 2. Otherwise, no acu te findings of the left hand Electronically ramiro d by: Clint Elder MD 10/07/2024 08:54 PM EST RP Dictated By: Clint Elder MD Signed By: <Electron ically signed by Clint Elder MD in OV> 10/07/242053 DD/ 1327 TD/TT: 07/27/24 1345 Exercise Equipment Specialist: Reason For Referral Reason Urgent Visit Request Consult and Treat Injury to Left index finger Loss of blood circulation to tip of left index finger Diagnosis 1 Fracture of unspecif ied phalanx of left index finger, initial encounter for closed fracture (S62.601A) Referral Organization Navi Greenberg III, MD Referring Provider First Name Navi Referring Provider Last Name Dionicio Referring Provider Speciality Internal M edicine Referred Provider Alisha Anton Referred Provider Specialty Hand Surgery General Notes Devorah Zacarias 2023 03:34:31 PM EDT > Referral and progress note faxed, their office as notified and will be looking for referral. Referral Priority Stat Referral Appointment Date 07/27/2024 Social History Tobacco Use: Social History Observation Description Date Details (start date - stop date) Current Smoker NA - NA Sex Assigned At : Social History Observation Description Sex Assigned At Male Tobacco Use/Smoking Question Answer Notes Patient is a current smoker How often do you smoke cigarettes? every day How many cigarettes a day do you smoke? 11-20 How soon after you wake up d o you smoke your first cigarette? within 5 minutes Are you interested in quitting? Thinking about q uitting Additional Findings: Tobacco User Modera te cigarette smoker (10-19 cigs/day) Alcohol Screen Question Answer Notes Did you have a drink contain ing alcohol in the past year? Yes How often did you have a dri nk containing alcohol in the past year? Monthly or less (1 point) How many drinks did you have on a typical day when you were drinking in the past year? 1 or 2 drinks (0 point) How often did you have 6 or more drinks on one occasion in the past year? Never (0 point) Points 1 Interpretation Negative Problems Problem Type SNOMED Code ICD Code Onset Dates Problem Status W/U Status Risk Notes Problem 708173237 Mixed hyperlipidemia (E78.2) Active confirmed His fasting lipid profile in the remainder of his blood work was within normal limits. Problem 32000960 Calculus of gallbladder without cholecystitis without obstruction (K80.20) Active confirmed Gallstones were noted on a CT scan of the abdomen done at [facility]. He is asymptomatic. He was instructed on how to proceed. If they become painful. Problem 25453119 Ureterolithiasis (N20.1) Active confirmed He has had no further episodes of renal colic. Problem Benign prostatic hypertrophy without outflow obstruction (334653163) BPH (benign prostatic hypertrophy) (N40.0) Active confirmed He notes some frequency but does not have any nocturia. Problem 06746112 Tobacco dependen ce (F17.200) Active confirmed He is smoking a package of cigarettes per day. We have begun the process of discussing and implementing smoking cessation. I have referred him for his first screening low dose CT scan through the thoracic surgery Department at [facility]. Problem COPD - Chronic obstructive pulmonary disease (05961296) COPD (chronic obstructive pulmonary disease) (J44.9) Active confirmed He continues to smoke. Occasional wheezes are present. Is asymptomatic. We discussed smoking cessation strategies at length today. Problem 486178592 History of pneumothorax (Z87.09) Active confirmed His lungs are well expanded today. Problem 553112615 Pleural plaque (J92.9) Active confirmed He has no history of asbestos exposure. This will be observed. A low-dose CT scan is pending. Problem 683448448 History of sciatica (Z86.69) Active confirmed He has not had sciatica for 3 years. He was instructed on how to proceed. If this returns. Vital Signs Heart Rate 69 /min 03/06/2025 Temperature 98.2 degrees Fahrenheit 03/06/2025 Respiratory Rate 16 /min 03/06/2025 Oximetry 95 % 03/06/2025 Blood pressure diastolic 71 mm Hg 03/06/2025 Height 72 in 03/06/2025 Blood pressure systolic 129 mm Hg 03/06/2025 Weight 164 lbs 03/06/2025 BMI 22.24 kg/m2 03/06/2025 Encounters Encounter Location Date Provider Diagnosis Navi Greenberg III, MD [address] [place] [address] [place] [address] 07/19/2024 Navi Greenberg Crushing injury of finger, initial encounter S67.10XA ; COPD (chronic obstructive pulmonary disease) J44.9 ; BPH (benign prostatic hypertrophy) N40.0 and Tobacco dependence F17.200 Navi Greenberg III, MD [address] [place] [address] [place] [address] 07/21/2024 Navi Greenberg Closed nondisplaced fracture of distal phalanx of left index finger, sequela S62.661S ; BPH (benign prostatic hypertrophy) N40.0 ; COPD (chronic obstructive pulmonary disease) J44.9 and Tobacco dependence F17.200 Navi Greenberg III, MD [address] [place] [address] [place] [address] 07/25/2024 Navi Greenberg Closed nondisplaced fracture of distal phalanx of left index finger, sequela S62.661S Navi Greenberg III, MD [address] [place] [address] [place] [address] 03/06/2025 Navi Greenberg Pharyngeal pain J39. 2 ; BPH (benign prostatic hypertrophy) N40.0 ; COPD (chronic obstructive pulmonary disease) J44.9 ; Tobacco dependence F17.200 and Ureterolithiasis N20.1 Navi Greenberg III, MD [address] [place] [address] [place] [address] 07/27/2024 Navi Greenberg III, MD [address] [place] [address] [place] [address] 06/15/2025 Navi Greenberg BPH (benign prostati c hypertrophy) N40.0 ; COPD (chronic obstructive pulmonary disease) J44.9 and Mixed hyperlipidemia E78.2 Assessments Encounter Date Diagnosis (ICD Code) Assessment Notes Treat ment Notes Treatment Clinical Notes 07/19/2024 COPD (chronic obstructive pulmonary disease) (ICD-10 - J44.9) He continues to smoke. Occasional wheezes are present. Is asymptomatic. We discussed smoking cessation strategies at length today. 07/19/2024 Crushing injury of finger, initial encounter (ICD-10 - S67.10XA) The area is swollen and there is no loss of range of motion of the distal joint. The tip of the finger has a diminished blood flow. I am concerned about a fracture as well as injury to the artery. An x-ray is being done in the will ask hand surgery to comment on any additional therapy needed. 07/21/2024 BPH (benign prostati c hypertrophy) (ICD-10 - N40.0) He notes some frequency but does not have any nocturia. 07/21/2024 Closed nondisplaced fracture of distal phalanx of left index finger, sequela (ICD-10 - S62.661S) He will continue current therapy and use warm soaks. Appears to be no vascular compromise at this point. The pain is improving. 07/25/2024 Closed nondisplaced fracture of distal phalanx of left index finger, sequela (ICD-10 - S62.661S) The pain in edema and erythema or less. The nail bed is dark black and loose. The tip of the finger is still white. I'm concerned about a vascular injury. He is going to see the hand surgeon in a few days. 03/06/2025 BPH (benign prostati c hypertrophy) (ICD-10 - N40.0) He notes some frequency but does not have any nocturia. 03/06/2025 Pharyngeal pain (ICD-10 - J39.2) An explanation for the symptoms was not found. Mild erythema may indicate an impending URI. He will be observed carefully. He will report to me any changes in the symptom. 06/15/2025 BPH (benign prostati c hypertrophy) (ICD-10 - N40.0) 07/19/2024 BPH (benign prostati c hypertrophy) (ICD-10 - N40.0) He notes some frequency but does not have any nocturia. 07/21/2024 COPD (chronic obstructive pulmonary disease) (ICD-10 - J44.9) He continues to smoke. Occasional wheezes are present. Is asymptomatic. We discussed smoking cessation strategies at length today. 03/06/2025 COPD (chronic obstructive pulmonary disease) (ICD-10 - J44.9) He continues to smoke. Occasional wheezes are present. Is asymptomatic. We discussed smoking cessation strategies at length today. 06/15/2025 COPD (chronic obstructive pulmonary disease) (ICD-10 - J44.9) 07/19/2024 Tobacco dependence (ICD-10 - F17.200) He is smoking a package of cigarettes per day. We have begun the process of discussing and implementing smoking cessation. I have referred him for his first screening low dose CT scan through the thoracic surgery Department at [facility]. 07/21/2024 Tobacco dependence (ICD-10 - F17.200) He is smoking a package of cigarettes per day. We have begun the process of discussing and implementing smoking cessation. I have referred him for his first screening low dose CT scan through the thoracic surgery Department at [facility]. 03/06/2025 Tobacco dependence (ICD-10 - F17.200) He is smoking a package of cigarettes per day. We have begun the process of discussing and implementing smoking cessation. I have referred him for his first screening low dose CT scan through the thoracic surgery Department at [facility]. 06/15/2025 Mixed hyperlipidemia (ICD-10 - E78.2) 03/06/2025 Ureterolithiasis (ICD-10 - N20.1) He has had no further episodes of renal colic. Plan Of Treatment Pending Test Test Name Order Date PROFILE, FASTING (COMPREHENSIVE METABOLI C) 12/28/2023 PROFILE, FASTING (COMPREHENSIVE METABOLI C) 06/09/2023 PROFILE, FASTING (COMPREHENSIVE METABOLI C) 06/25/2023 PROFILE, FASTING (COMPREHENSIVE METABOLI C) 06/15/2025 PROFILE, FASTING (COMPREHENSIVE METABOLI C) 06/15/2024 LIPID PANEL 06/09/2023 LIPID PANEL 06/25/2023 LIPID PANEL 06/15/2024 TSH (THYROID STIMULATING HORMONE) 2022 PSA, TOTAL 06/15/2024 PSA, TOTAL 12/28/2023 PSA, TOTAL 06/09/2023 PSA, TOTAL 06/15/2025 CBC w DIFF 06/09/2023 CBC w DIFF 06/15/2025 CBC w DIFF 06/15/2024 CBC w DIFF 06/25/2023 VITAMIN D 25-OH TOTAL 06/09/2023 CBC WITH AUTO DIFF 12/28/2023 Lipid Panel 06/15/2025 Lipid Panel 12/28/2023 XR hand LT min 3V 07/19/2024 Next Appt Details Provider Name:Navi Greenberg, 06/20/2025 10:00:00 AM, [address] [place] [address] NATALIE VILLANUEVA, [place], [address], Insurance Providers Payer Name Payer Address Payer Phone Subscriber Number Group Number Insured Name Patient Relationship to Insured Coverage Start Date Coverage End Date [facility] [address] [facility] [address] [facility] [place] [phone] [id number] NYLA VENEGAS Self - patient is the insured Medical (General) History Medical History History ICD Code Right pneumothorax at age 16 Tobacco dependence. 100 pack years COPD Colonoscopy 2012 Right posterior costophrenic angle plaqu e 2. Stones right renal pelvis History of kidney stone, lef t ureteral vesicular junction with hydronephrosis, resolved Cholelithiasis Old granulomatous disease. Chest x-ray J anuary 2022 Recent weight loss Partial amputation left third finger Hemorrhoids Dental extractions Fractured ribs Skin cancer below right eye, removed Hyperlipidemia Deviation nasal septum Sciatica 2019 Surgical History Surgery Date(Month/Year) Colonoscopy, [facility], Dr. Gail velasquez 2012 History of rib fractures Partial amputation left third finger Pneumothorax age 16 Dental extractions Hemorrhoidectomy
[2025-06-18 07:38] LABS: MANUAL DIFF FLAG NO
[2025-06-18 08:11] LABS: Hematocrit 46.3 % (42.0-52.0); Hemoglobin 16.0 g/dl (14.0-18.0); Imm Gran Abs Auto 0.02 X10*3/uL (0.00-0.03); Imm Gran Pct Auto 0.3 % (0.0-0.4); Lymphocytes Absolute Auto 1.6 X10*3/uL (1.2-4.9); Mean Corpuscular HGB Conc 34.6 g/dl (31.0-36.0); Mean Corpuscular Hemoglobin 32.3 pg (27.0-33.0); Mean Corpuscular Volume 93.5 fL (80.0-98.0); NRBC Abs Auto 0.000 X10*3/uL (0.0-0.012); NRBC Pct Auto 0.0 /100WBC (0.0-0.2); Platelet Count 239 X10*3/uL (160-400); Red Blood Count 4.95 X10*6/uL (4.60-5.80); White Blood Count 6.3 X10*3/uL (4.8-10.8)
[2025-06-18 08:52] LABS: Alanine Aminotransferase 22 U/L (0-40); Albumin Level 4.5 g/dL (3.5-5.0); Alkaline Phosphatase 82 U/L (39-117); Anion Gap 12 (12-20); Aspartate Amino Transferase 25 U/L (5-37); Blood Urea Nitrogen 14 mg/dL (9-16); Calcium 9.5 mg/dL (8.4-10.2); Carbon Dioxide 29 mmol/L (22-29); Chloride 109 mmol/L (96-108); Cholesterol 187 mg/dL (<200); Estimated Glomerular Filt Rate > 60; HDL Cholesterol 32 mg/dL (>40); Potassium 4.3 mmol/L (3.3-5.1); Sodium 146 mmol/L (135-145); Total Protein 7.5 g/dL (6.5-8.0); Triglycerides 115 mg/dL (<150)
[2025-06-18 09:11] LABS: Prostate Specific Antigen 0.94 ng/mL (<0.05-4.0)
== END 2025-06-18 07:22 | disposition home or self-care (01) ==
LOC: HO.LAB 07:21
PROVIDERS: PCP Internal Medicine Medical Oncology; Visit Provider Internal Medicine Medical Oncology
DX: Z00.00 Encounter for general adult medical examination without abnormal findings (principal); N40.0 Benign prostatic hyperplasia without lower urinary tract symptoms; J44.9 Chronic obstructive pulmonary disease, unspecified; E78.2 Mixed hyperlipidemia; Z12.5 Encounter for screening for malignant neoplasm of prostate
CPT/HCPCS: 36415; 80053; 80061; 84153; 85025